=== PATIENT | female | born 1965 | race Caucasian/White ===

== ENCOUNTER 2017-02-22 10:35 | Emergency (ER) | payer BC ==
[2017-02-22 10:50] VITALS: BP 122/68
--- NOTE | 2017-02-22 11:30 | UC ---
Complaint Female HPI - HPI Summary HPI Summary: Urinary frequency began 3 days ago-no pain or burning--fevers chills or back pain - History Of Current Complaint Chief Complaint: UCGU Stated Complaint: URINARY Time Seen by Provider: 02/22/17 11:24 Hx Obtained From: Patient Hx Last Menstrual Period: no ?: No Onset/Duration: Gradual Onset, Lasting Days - 3, Still Present Timing: Constant Severity Initially: Mild Severity Currently: Mild Character: Not Applicable Alleviating Factor(s): Nothing Associated Signs And Symptoms: Positive: Negative - Allergies/Home Medications Allergies/Adverse Reactions: Allergies Allergy/AdvReac Type Severity Reaction Status Date / Time No Known Allergies Allergy Verified 02/22/17 10:50 Home Medications: Home Medications Atorvastatin* [Lipitor 10 MG*] 10 mg PO DAILY 02/22/17 [History Confirmed ] PMH/Surg Hx/FS Hx/Imm Hx Previously Healthy: No Endocrine History: Dyslipidemia GI/ History: Gastroesophageal Reflux - Surgical History Surgical History: Yes Surgery Procedure, Year, and Place: BREAST BIOPSY(BENIGN) CAN'T REMEMBER WHICH SIDE, NOV 2012 - Family History Known Family History: Positive: None - Social History Occupation: Employed Full-time Lives: With Family Alcohol Use: Rare Substance Use Type: None Smoking Status (MU): Heavy Every Day Tobacco Smoker Type: Cigarettes Amount Used/How Often: 3/4 - 1 ppd Length of Time of Smoking/Using Tobacco: 33 yrs Have You Smoked in the Last Year: Yes - Immunization History Most Recent Influenza Vaccination: no Review of Systems Constitutional: Negative Skin: Negative Eyes: Negative ENT: Negative Respiratory: Negative Cardiovascular: Negative Gastrointestinal: Negative Genitourinary: Negative, Frequency Motor: Negative Neurovascular: Negative Musculoskeletal: Negative Neurological: Negative Psychological: Negative Is Patient Immunocompromised?: No All Other Systems Reviewed And Are Negative: Yes Physical Exam Triage Information Reviewed: Yes Appearance: Well-Appearing, No Pain Distress, Well-Nourished Vital Signs: Initial Vital Signs Temp 98.6 F 02/22/17 10:45 Pulse 84 02/22/17 10:45 Resp 14 02/22/17 10:45 BP 122/68 02/22/17 10:45 Pulse Ox 100 02/22/17 10:45 Vital Signs Reviewed: Yes Eye Exam: Normal Eyes: Positive: Conjunctiva Clear ENT Exam: Normal ENT: Positive: Normal ENT inspection, Hearing grossly normal. Negative: Nasal congestion, Nasal drainage, Trismus, Muffled voice, Hoarse voice Dental Exam: Normal Neck exam: Normal Neck: Positive: Supple, Nontender Respiratory Exam: Normal Respiratory: Positive: Chest non-tender, No respiratory distress, No accessory muscle use Cardiovascular Exam: Normal Cardiovascular: Positive: RRR, Pulses Normal, Brisk Capillary Refill Abdominal Exam: Normal Abdomen Description: Positive: Nontender, No Organomegaly, Soft. Negative: CVA Tenderness (R), CVA Tenderness (L) Bowel Sounds: Positive: Present Musculoskeletal Exam: Normal Musculoskeletal: Positive: Strength Intact, ROM Intact, No Edema Neurological Exam: Normal Neurological: Positive: Alert, Muscle Tone Normal Psychological Exam: Normal Skin Exam: Normal Diagnostics - Laboratory Diagnostic Studies Completed/Ordered: UA-trace blood Complaint Female Dx - Course Course Of Treatment: increase fluids, pyridium, follow with pcp - Differential Dx/Diagnosis Provider Diagnoses: dysuria, hematuria Discharge - Discharge Plan Condition: Stable Disposition: HOME Prescriptions: Phenazopyridine TAB* [Pyridium 100 mg TAB*] 100 mg PO TID PRN #15 tab PRN Reason: urinary frequency Patient Education Materials: Hematuria (ED), Dysuria (ED) Referrals: Yadi Vazquez [Physician Web Marketing Assistant] - 1 Week
== END 2017-02-22 11:38 | disposition home or self-care (01) ==
LOC: UCCORT 10:35
DX: R30.0 Dysuria (principal); R31.9 Hematuria, unspecified; F17.210 Nicotine dependence, cigarettes, uncomplicated; K21.9 Gastro-esophageal reflux disease without esophagitis; E78.5 Hyperlipidemia, unspecified
CPT/HCPCS: 81003; 99211; G0463

== ENCOUNTER 2017-03-10 15:25 | Emergency (ER) | payer BC ==
[2017-03-10 17:17] VITALS: BP 138/78
[2017-03-10] MEDS ORDERED: Lidocaine 2% VISCOUS* 15 ML UDC TOPICAL ONE (17:35)
--- NOTE | 2017-03-10 17:45 | UC ---
Skin Complaint HPI - HPI Summary HPI Summary: For about two weeks has had growing, painful spot on upper chest between breasts. Tried hot compresses in the last 1-2 days, it noticing a white spot on top. No drainage, no fevers, no streaking. - History of Current Complaint Chief Complaint: UCSkin Time Seen by Provider: 03/10/17 17:20 Stated Complaint: BOIL Hx Obtained From: Patient Hx Last Menstrual Period: awhile ?: No Onset/Duration: Gradual Onset, Lasting Weeks, Still Present Timing: Constant Onset Severity: Mild Current Severity: Moderate Location: Discrete Character: Redness, Raised, Painful Aggravating Factor(s): Touch Alleviating Factor(s): Nothing Associated Signs & Symptoms: Positive: Tenderness - Allergy/Home Medications Allergies/Adverse Reactions: Allergies Allergy/AdvReac Type Severity Reaction Status Date / Time No Known Allergies Allergy Verified 03/10/17 17:17 Review of Systems Constitutional: Negative Skin: Other - spot Eyes: Negative ENT: Negative Respiratory: Negative Cardiovascular: Negative Gastrointestinal: Negative Genitourinary: Negative Motor: Negative Neurovascular: Negative Musculoskeletal: Negative Neurological: Negative Psychological: Negative Is Patient Immunocompromised?: No All Other Systems Reviewed And Are Negative: Yes PMH/Surg Hx/FS Hx/Imm Hx Endocrine History: Dyslipidemia GI/ History: Gastroesophageal Reflux - Surgical History Surgical History: Yes Surgery Procedure, Year, and Place: BREAST BIOPSY(BENIGN) CAN'T REMEMBER WHICH SIDE, NOV 2012; 2nd bx 2017 on left breast - Family History Known Family History: Positive: None - Social History Lives: With Family Alcohol Use: Rare Substance Use Type: None Smoking Status (MU): Heavy Every Day Tobacco Smoker Type: Cigarettes Amount Used/How Often: 3/4 - 1 ppd Length of Time of Smoking/Using Tobacco: 33 yrs Have You Smoked in the Last Year: Yes - Immunization History Most Recent Influenza Vaccination: no Physical Exam Triage Information Reviewed: Yes Appearance: Well-Appearing, No Pain Distress, Well-Nourished Vital Signs: Initial Vital Signs Temp 98.2 F 03/10/17 17:12 Pulse 75 03/10/17 17:12 Resp 20 03/10/17 17:12 BP 138/78 03/10/17 17:12 Vital Signs Reviewed: Yes Eye Exam: Normal Eyes: Positive: Conjunctiva Clear ENT Exam: Normal ENT: Positive: Normal ENT inspection, Hearing grossly normal, Pharynx normal, TMs normal Dental Exam: Normal Neck exam: Normal Neck: Positive: Supple, Nontender, No Lymphadenopathy Respiratory Exam: Normal Respiratory: Positive: Chest non-tender, Lungs clear, Normal breath sounds, No respiratory distress, No accessory muscle use Cardiovascular Exam: Normal Cardiovascular: Positive: RRR, No Murmur Musculoskeletal Exam: Normal Neurological Exam: Normal Neurological: Positive: Alert Psychological Exam: Normal Skin Exam: Other - very well-defined, domed round 1.25cm lesion on mid sternum with white, keratinous area in the middle, separate from domed area. Very tender to touch. No surrounding erythema, no drainage, no streaking. Course/Dx - Diagnoses Provider Diagnoses: neoplasm of skin of uncertain behavior on chest wall Discharge - Discharge Plan Condition: Stable Disposition: HOME Patient Education Materials: Atypical Mole (ED) Referrals: Mari Ybarra MD [Primary Care Provider] - Satish Vaughn MD [Medical Doctor] - 7 Days Additional Instructions: The recent changes in your skin lesion are concerning. You will need either part or all of it removed for evaluation by a pathologist. I recommend you see a insurance business analyst for this. Try using the topical lidocaine as needed for pain. If it doesn't help, take 400mg ibuprofen about an hour before sleep to help with the bedtime pain.
== END 2017-03-10 18:04 | disposition home or self-care (01) ==
LOC: UCCORT 15:25
DX: D48.5 Neoplasm of uncertain behavior of skin (principal); E78.5 Hyperlipidemia, unspecified; K21.9 Gastro-esophageal reflux disease without esophagitis; F17.210 Nicotine dependence, cigarettes, uncomplicated
CPT/HCPCS: 99212; G0463

== ENCOUNTER 2018-05-27 16:36 | Emergency (ER) | payer BC ==
--- OUTSIDE RECORDS SUMMARY | 2018-05-27 16:58 | XMS REPORT | Continuity of Care Document ---
:1965 External Reference #:[id number] Author Name Sophia Kyle MD Address [address] [place] [address] Care Team Providers Name Role Phone Sophia Kyle MD Care Team Information Cloth Inspector Unavailable Sophia Kyle MD Primary Care Physician Unavailable Payers Date Identification Numbers Payment Provider Subscriber Policy Number: [id number] Roshnius Heydi Corado PayID: [id number] [address] [address] [place] [address] Advance Directives Description No Information Available Problems Date Description Provider Status Onset: 10/15/2012 Benign tumor of breast Rohit Mcgarry MD Active Onset: 06/22/2016 Heartburn Jabier Hartmann MD Active Onset: 09/05/2016 Gastro-esophageal reflux disease with Jabier Hartmann MD Active esophagitis Onset: 09/05/2016 Gastroduodenitis Jabier Hartmann MD Active Onset: 09/05/2016 Benign neoplasm of stomach Jabier Hartmann MD Active Onset: 07/17/2017 Screening for malignant neoplasm of Jabier Hartmann MD Active colon Onset: 02/18/2018 Hyperlipidemia Sophia Kyle MD Active Onset: 02/18/2018 Gastro-esophageal reflux disease with Sophia Kyle MD Active esophagitis Onset: 02/18/2018 Migraine without aura, not refractory Sophia Kyle MD Active Onset: 02/18/2018 Trigeminal neuralgia Sophia Kyle MD Active Family History Date Family Member(s) Observation Comments General Non Contributory Father Diabetes Father due to Diabetes () Father Thyroid Disease Mother Seasonal Allergies Social History Type Date Description Comments Sex Unknown Marital Status Lives With Home Environment Lives With Spouse Diet Patient follows no dietary restrictions Occupation Currently Working Space [employer] Operations [employer] Work Status Currently Working Tobacco Use Start: Unknown current cigarette smoker ETOH Use Rarely consumes alcohol Tobacco Use Start: Unknown Patient is a current smoker, smokes every day Recreational Drug Use Denies Drug Use Tobacco Use Start: Unknown Light tobacco smoker (10 or fewer cigarettes/day) Smoking Status Reviewed: 05/13/18 Light tobacco smoker (10 or fewer cigarettes/day) Allergies, Adverse Reactions, Alerts Description No Known Drug Allergies Medications Medication Date Status Form Strength Qnty SIG Indications Ordering Provider Benzonatate 05/14/19 Active Capsules 200mg 30cap take one R05 Anabella, 19 s capsule MD Sophia every 8 hours as needed Mucus Relief 05/14/19 Active Tablets ER 600mg 60tab Take one R05 Anabella , ER 19 12HR s every 12 MD Sophia hours if needed Singulair Active Tablets 10mg 1 po qd Unknown 00 prn Atorvastatin Active Tablets 10mg 1 po daily Cunningha Calcium 00 mMari MD Famotidine Active Tablets 20mg 1 by mouth Unknown 00 every day Dulcolax 07/18/[address] 5mg 4tabs 4 tablets Z12.11 Jabier 18 - taken kalen Hartmann MD 02/19/20 8pm the 18 day before the procedure Suprep Bowel 07/18/19 Hx Solution 17.5-3.13 1kit 1/2 Z12.11 Jabier Prep Kit 18 - -1.6GM/18 afternoon MD Shahbaz 02/19/20 0ML before and 18 1/2 in the morning of procedure. Meclizine HCL Hx Tablets 25mg 90tab 1 po tid Unknown 00 - s Unknown Imitrex Hx Tablets 100mg Unknown 00 - Unknown Omeprazole Hx Capsules DR 20mg 90cap 1 po qd Unknown 00 - s 02/19/20 18 Triamcinolone Hx Cream 0.025% Unknown Acetonide 00 - Unknown Auralgan Hx Solution 5.5-1.4% Unknown 00 - Unknown Fluticasone Hx Suspension 50mcg/Act 1 puff bid Unknown Propionate 00 - Unknown Relpax Hx Tablets 20mg one by Unknown 00 - mouth at Unknown first sign of migraine - may take 2nd after 2 hours if migraine still present. Immunizations CPT Code Status Date Vaccine Lot # [id number] Given 06/01/2016 Pneumovax Injection 31137 Given 06/01/2016 Tdap injection [id number] Given 01/01/2013 flu vaccination Vital Signs Date Vital Result Comment 05/13/2018 8:27am BP Systolic Sitting Left Arm 108 mmHg BP Diastolic Sitting Left Arm 78 mmHg Body Temperature 97.5 F Heart Rate 83 /min Respiratory Rate 16 /min Height 65 inches 5'5" Weight 167.00 lb with boots BMI (Body Mass Index) 27.8 kg/m2 BSA (Body Surface Area) 1.83 m2 [place] body weight in kilograms 57 kg O2 % BldC Oximetry 97 % Ra 02/18/2018 8:40am BP Systolic Sitting Right Arm 123 mmHg BP Diastolic Sitting Right Arm 85 mmHg Body Temperature 98.0 F Heart Rate 83 /min Respiratory Rate 16 /min Height 65 inches 5'5" Weight 168.00 lb BMI (Body Mass Index) 28.0 kg/m2 BSA (Body Surface Area) 1.84 m2 [place] body weight in kilograms 57 kg O2 % BldC Oximetry 96 % 07/17/2017 4:04pm BP Systolic Sitting Right Arm 116 mmHg BP Diastolic Sitting Right Arm 78 mmHg Heart Rate 89 /min Respiratory Rate 18 /min Height 65 inches 5'5" Weight 167.00 lb BMI (Body Mass Index) 27.8 kg/m2 BSA (Body Surface Area) 1.83 m2 [place] body weight in kilograms 57 kg 09/05/2016 8:24am BP Systolic Sitting Left Arm 120 mmHg BP Diastolic Sitting Left Arm 82 mmHg Heart Rate 90 /min Respiratory Rate 16 /min Height 65 inches 5'5" Weight 165.00 lb BMI (Body Mass Index) 27.5 kg/m2 BSA (Body Surface Area) 1.82 m2 [place] body weight in kilograms 57 kg 06/22/2016 9:29am BP Systolic Sitting Left Arm 124 mmHg BP Diastolic Sitting Left Arm 90 mmHg Heart Rate 86 /min Respiratory Rate 16 /min Height 65 inches 5'5" Weight 165.00 lb BMI (Body Mass Index) 27.5 kg/m2 BSA (Body Surface Area) 1.82 m2 [place] body weight in kilograms 57 kg 10/15/2012 11:52am BP Systolic Sitting Left Arm 116 mmHg BP Diastolic Sitting Left Arm 72 mmHg Heart Rate 75 /min Height 66 inches 5'6" Weight 169.00 lb BMI (Body Mass Index) 27.3 kg/m2 BSA (Body Surface Area) 1.86 m2 Results Test Date Facility Test Result H/L Range Note Comprehensive Metabolic 05/13/2018 [facility] Glucose 89 mg/dL N 74-106 1 Panel [address] [place], [place] [id number] [phone] BUN 15 mg/dL N 7-18 Creatinine 0.7 mg/dL N 0.6-1.3 Glom Filtration Rate, Estimate >60 mL/min >60 If >60 mL/min >60 2 BUN/Creat 21.4 ratio Sodium 142 mmol/L N 136-145 Potassium 5.1 mmol/L N 3.5-5.1 Chloride 108 mmol/L High 98-107 Carbon Dioxide 30 mmol/L N 21-32 Anion Gap 4 mEq/L Low 8-16 Calcium 9.4 mg/dL N 8.5-10.1 Total Protein 7.0 g/dL N 6.4-8.2 Albumin 3.8 g/dL N 3.4-5.0 Globulin 3.2 g/dL N 1.9-4.3 Alb/Glob 1.2 ratio Bilirubin,Total 0.4 mg/dL N 0.2-1.0 Sgot/Ast 11 U/L Low 15-37 3 SGPT/Alt 26 U/L N 12-78 Alkaline Phosphatase 115 U/L N 45-117 LDL Cholesterol 05/13/2018 [facility] Cholesterol 272 mg/dL High <200 4 Profile [address] [place], [place] [id number] [phone] Triglycerides 373 mg/dL High <150 5 HDL Cholesterol 42 mg/dL >40 6 LDL-Cholesterol 155 mg/dL < 100 7 Laboratory test 05/13/2018 [facility] Vitamin 25.5 Low 30.0-100.0 8 finding [address] [facility] D,25-Hydroxy ng/[place] [address] [phone] Glycohemoglobin 05/13/2018 [facility] Glycohemoglobin 5.6 % N 4.2-6.[address] (A1c) [place], [place] [id number] [phone] eAG 114 mg/dL CBC W/Automated Diff 05/13/2018 [facility] White Blood 7.1 K/uL N 3.1-10.[address] [place] [address] [phone] Red Blood Count 4.51 M/uL N 3.90-5.40 Hemoglobin 14.5 gm/dL N 11.6-15.8 Hematocrit 43.2 % N 36.0-46.1 Mean Cell Volume 95.8 fl N 80.9-99.0 Mean Corpuscular HGB 32.2 pg N 25.9-32.7 Mean Corpuscular HGB Conc 33.6 g/dL N 30.8-34.3 Platelet Count 189 K/uL N 155-360 Red Cell Distri Width SD 48.0 fl High 36-47 Red Cell Distri Width %CV 14.0 % N 11.7-14.4 Mean Platelet Volume 11.6 fL N 8.9-12.4 Neut% 43.6 % N 40.4-72.8 Lymph % 46.4 % High 20.0-42.0 [place] % 7.3 % N 4.3-13.2 Eo% 2.4 % N 0.0-6.6 Bas% 0.3 % N 0.0-1.1 Neut# 3.10 K/uL N 1.8-7.0 Lymph # 3.30 K/uL N 1.0-4.0 [place] # 0.52 K/uL N 0.3-0.9 Eos # 0.17 K/uL N 0.0-0.5 Baso # 0.02 K/uL N 0.0-0.1 Laboratory test 05/13/2018 [facility] Thyroid Stim 2.11 uIU/mL N 0.30-4.[address] [place] [address] [phone] Free T4 1.01 ng/dL N 0.76-1.46 Magnesium 2.4 mg/dL N 1.8-2.4 Iron-Tibc-%Sat 05/13/2018 [facility] Serum Iron 133 g/dL N 50-[address] [place] [address] [phone] Total Iron Binding Capacity 347 g/dL N 250-450 Transferrin %Saturation 38 % N 12-57 Laboratory test finding 05/13/2018 [facility] Ferritin 145 ng/mL N 8-252 [address] [place], [place] [id number] [phone] Vitamin B12 731 pg/mL N 193-986 Serum or plasma 04/21/2018 N2N/CCD Import Serum or plasma 10 Low 15-37 aspartate aspartate aminotransferase aminotransferase measure measurement (enzymatic activity/volume) Serum or plasma 04/21/2018 N2N/CCD Import Serum or plasma 6 Low 8-16 anion gap anion gap Serum or plasma 04/21/2018 N2N/CCD Import Serum or plasma 121 High 45- 117 alkaline alkaline phosphatase phosphatase measurement ( measurement (enzymatic activity/volume) Serum or plasma 04/21/2018 N2N/CCD Import Serum or plasma 1.0 albumin/globulin albumin/globulin mass ratio mass ratio Serum or plasma 04/21/2018 N2N/CCD Import Serum or plasma 3.7 3.4-5.0 albumin measurement albumin measurement (mass/volume) (mass/volume) Serum or plasma 04/21/2018 N2N/CCD Import Serum or plasma 21 12-78 alanine alanine aminotransferase aminotransferase measureme measurement (enzymatic activity/volume) Serum globulin 04/21/2018 N2N/CCD Import Serum globulin 3.6 1.9-4.3 measurement by measurement by calculation calculation (mass/vo (mass/volume) Hct VFr Bld Auto 04/21/2018 N2N/CCD Import Hct VFr Bld Auto 43.1 36.0- 46. 1 Co2 SerPl-sCnc 04/21/2018 N2N/CCD Import Co2 SerPl-sCnc 24 21-32 Serum or plasma 04/21/2018 N2N/CCD Import Serum or plasma 9.7 8.5-10.1 calcium measurement calcium measurement (mass/volume) (mass/volume) Serum or plasma 04/21/2018 N2N/CCD Import Serum or plasma 106 98-107 chloride chloride measurement measurement Serum or plasma 04/21/2018 N2N/CCD Import Serum or plasma 0.8 0.6-1.3 creatinine creatinine measurement measurement (mass/volum (mass/volume) Serum or plasma 04/21/2018 N2N/CCD Import Serum or plasma 96 74-106 glucose measurement glucose measurement (mass/volume) (mass/volume) Serum or plasma 04/21/2018 N2N/CCD Import Serum or plasma 4.3 3.5-5.1 potassium potassium measurement measurement Serum or plasma 04/21/2018 N2N/CCD Import Serum or plasma 7.3 6.4-8.2 protein measurement protein measurement (mass/volume) (mass/volume) Serum or plasma 04/21/2018 N2N/CCD Import Serum or plasma 0.2 0.2-1.0 total bilirubin total bilirubin measurement (mass/ measurement (mass/volume) Serum or plasma 04/21/2018 N2N/CCD Import Serum or plasma 17 7-18 urea nitrogen urea nitrogen measurement measurement (mass/vo (mass/volume) Serum or plasma 04/21/2018 N2N/CCD Import Serum or plasma 21.2 urea urea nitrogen/creatinine nitrogen/creatinine mass rati mass ratio Sodium SerPl-sCnc 04/21/2018 N2N/CCD Import Sodium SerPl-sCnc 136 136- 145 Laboratory test 04/21/2018 [facility] Troponin-I < 0.015 10, finding [address] ng/mL [address] [place], [place] [id number] [phone] Absolute neutrophil 04/21/2018 N2N/CCD Import Absolute neutrophil 3.49 1.8-7.0 count count Automated basophil 04/21/2018 N2N/CCD Import Automated basophil 0.3 0.0- 1.1 % % Automated blood 04/21/2018 N2N/CCD Import Automated blood 0.02 0.0-0.1 basophil count basophil count (number/volume) (number/volume) Automated blood 04/21/2018 N2N/CCD Import Automated blood 0.15 0.0-0.5 eosinophil count eosinophil count Automated blood 04/21/2018 N2N/CCD Import Automated blood 8.0 3.1-10.7 leukocyte count leukocyte count (number/volume) (number/volume) Automated blood 04/21/2018 N2N/CCD Import Automated blood 3.70 1.0-4.0 lymphocyte count lymphocyte count (number/volume) (number/volume) Automated blood 04/21/2018 N2N/CCD Import Automated blood 46.3 High 20.0- 42. lymphocytes/100 lymphocytes/100 0 leukocytes leukocytes Automated blood 04/21/2018 N2N/CCD Import Automated blood 43.6 40.4-72. neutrophils/100 neutrophils/100 8 leukocytes leukocytes Automated blood 04/21/2018 N2N/CCD Import Automated blood 191 155-360 platelet count platelet count Automated blood 04/21/2018 N2N/CCD Import Automated blood 11.1 8.9-12.4 platelet mean platelet mean volume measurement volume measurement Automated 04/21/2018 N2N/CCD Import Automated 1.9 0.0-6.6 eosinophil % eosinophil % Automated 04/21/2018 N2N/CCD Import Automated 46.2 36-47 erythrocyte erythrocyte distribution width distribution width Automated 04/21/2018 N2N/CCD Import Automated 13.8 11.7-14. erythrocyte erythrocyte 4 distribution width distribution width ratio ratio Automated 04/21/2018 N2N/CCD Import Automated 32.5 25.9-32. erythrocyte mean erythrocyte mean 7 corpuscular corpuscular hemoglobin hemoglobin (mass per erythrocyte) Automated 04/21/2018 N2N/CCD Import Automated 34.6 High 30.8-34. erythrocyte mean erythrocyte mean 3 corpuscular corpuscular hemoglobin hemoglobin concentration measurement (mass/volume) Automated 04/21/2018 N2N/CCD Import Automated 93.9 80.9-99. erythrocyte mean erythrocyte mean 0 corpuscular volume corpuscular volume (MCV (MCV) measurement Automated monocyte 04/21/2018 N2N/CCD Import Automated monocyte 7.9 4.3- 13.2 % % Blood erythrocytes 04/21/2018 N2N/CCD Import Blood erythrocytes 4.59 3.90-5.4 automated count automated count 0 (number/volume) (number/volume) Blood hemoglobin 04/21/2018 N2N/CCD Import Blood hemoglobin 14.9 11.6- 15. measurement measurement 8 (mass/volume) (mass/volume) Blood monocytes 04/21/2018 N2N/CCD Import Blood monocytes 0.63 0.3-0.9 automated count automated count (number/volume) (number/volume) Urine Dipstick 02/18/2018 [facility] Ua Color yellow Yellow Ua Clarity clear Clear Ua Leuko - Negative Ua Nitrite - Negative Ua Urobilinogen - Low 0.2 - 1.0 E.U./dL Ua Protein - Negative Ua PH 7 6.5-7.5 Ua Blood - Negative Ua Specific [place] 1.010 1.010-1.030 Ua Ketones - Negative Ua Bilirubin - Negative Ua Glucose - Negative CBC With Auto Diff 07/29/2015 N2N/CCD Import Abs Basophils 0.1 K/uL 0.0- 0.3 Abs Eosinophils 0.2 K/uL 0.0-0.5 Abs Lymphocytes 3.1 K/uL 0.8-5.5 Abs Monocytes 0.5 K/uL 0.1-1.0 Abs Neutrophils 4.3 K/uL 2.1-8.0 Basophil 0.6 % 0.0-4.0 Eosinophil 2.0 % 0.0-5.0 Hematocrit 42.6 % 36.0-47.0 Hemoglobin 14.6 gm/dL 12.0-16.0 Lymphocyte 38.6 % 16.0-52.0 MCH 32.2 pg High 27.0-32.0 MCHC 34.2 g/dL 32.0-36.0 MCV 94.2 fL 80.0-97.0 Monocyte 6.4 % 2.0-10.0 Neutrophil 52.4 % 35.0-75.0 PLT Count 214 K/ul 140-400 RBC 4.52 M/uL 4.00-5.40 RDW 13.8 % 11.5-14.5 WBC 8.1 K/uL 4.1-11.0 Laboratory test finding 07/29/2015 N2N/CCD Import A/G Ratio 1.4 Ratio 1.0-2.2 Екатерина Egfr >60 >60 Albumin 4.0 g/dL 3.6-4.9 Alkaline Phosphatase 114 U/L 24-140 Alt 10 U/L 3-42 Anion Gap 10 mmol/L 6-14 Ast 10 U/L 8-42 BUN 13 mg/dL 6-26 Calcium 9.8 mg/dL 8.5-10.2 Carbon Dioxide 30 mmol/L 24-34 Chloride 101 mmol/L 97-109 Creatinine 0.8 mg/dL 0.5-1.4 Globulin 2.9 g/dL 2.0-3.5 Glucose 77 mg/dL 70-105 Non Екатерина Egfr >60 >60 Potassium 5.1 mmol/L 3.5-5.2 12 Sodium 136 mmol/L 134-142 13 Total Bilirubin 0.4 mg/dL 0.1-1.3 Total Protein 6.9 g/dL 6.0-8.0 Laboratory test 06/01/2015 N2N/CCD Import Pap Smear Thin Prep ok 14 finding Laboratory test 11/18/2012 [facility] Breast Biopsy - See Note 15 finding [address] [place] [address] [phone] 1 E78.5 G43.009 E55.9 Z86.32 R53.82 G25.81 2 Note: Persistent reduction for 3 months or more in an eGFR <60 mL/min/1.73 m2 defines CKD. Patients with eGFR values >/=60 mL/min/1.73 m2 may also have CKD if evidence of persistent proteinuria is present. The original MDRD equation for estimated GFR is not valid for patients less than 18 years of age. Additional information may be found at www.kdoqi.org. 3 Values below the stated reference ranges of AST and ALT can be seen in normal populations. Clinical correlation is suggested. 4 Reference Guidelines*: Desirable: ........... < 200 mg/dL Borderline High: ..... 200-239 mg/dL High: ................ >=240 mg/dL * The National Cholesterol Education Program (NCEP) 5 Reference Guidelines*: Normal: ............. < 150 mg/dL Borderline High: .... 150-199 mg/dL High: ............... 200-499 mg/dL Very High: .......... > 500 mg/dL * Source: National Cholesterol Education Program (NCEP) 6 Reference Guidelines*: Low HDL: ..... < 40 mg/dL Normal: ..... 40-60 mg/dL Desirable: ... > 60 mg/dL *The National Cholesterol Education Program(NCEP) 7 Reference Guidelines*: Optimal:........... <100 mg/dL Near Optimal....... 100-129 mg/dL Borderline High.... 130-159 mg/dL High............... 160-189 mg/dL Very High.......... >=190 mg/dL * Source: National Cholesterol Education Program (NCEP) 8 Vitamin D deficiency has been defined by the [place] of Medicine and an Endocrine Society practice guideline as a level of serum 25-OH vitamin D less than 20 ng/mL (1,2). The Endocrine Society went on to further define vitamin D insufficiency as a level between 21 and 29 ng/mL (2). 1. IOM ([place] of Medicine). 2010. Dietary reference intakes for calcium and D. [place]: The National Academies Press. 2. James MF, Sasha TRAN, Marilu POTTS, et al. Evaluation, treatment, and prevention of vitamin D deficiency: an Endocrine Society clinical practice guideline. JCEM. 2010; 96(9):1911-30. Performed at: RN - [facility] [address] [id number] Linotypist: Jessica Rodgers MD, Phone: [phone] 9 Elevated levels of HbA1c suggest the need for more aggressive treatment of glycemia. The [place] Diabetes Association recommends that a primary goal of therapy should be a HbA1c of <7% and that physicians should re-evaluate the treatment regimen in patients with HbA1c values consistently >8%. 10 CHEST PAIN AND LEFT ARM PAIN 11 0.0 - 0.045 ng/mL: Normal 0.046 - 0.5 ng/mL: Suggestive 0.6 - 1.5 ng/mL: Consistent 12 Concerning GFR Guidelines: Normal function or mild renal disease, if clinically at risk: >/=60 mL/min Moderately decreased: 30-59 Severely decreased: 15-29 Renal failure: <15 Glomerular Filtration Rate (GFR) is estimated based on the MDRD equation, which assumes a steady state for creatinine as recommended by the National Kidney Disease Education Program in conjunction with the National Institutes of Health and the National Kidney Foundation. Clinical conditions in which it may be necessary to measure GFR by using clearance methods include extremes of age and body size, severe malnutrition or obesity, diseases of skeletal muscle, paraplegia or quadriplegia, vegetarian diet, rapidly changing kidney function, and calculation of the dose of potentially toxic drugs that are excreted by the kidneys. 13 Concerning GFR Guidelines for Americans: Normal function or mild renal disease, if clinically at risk: >/=60 mL/min Moderately decreased: 30-59 Severely decreased: 15-29 Renal failure: <15 14 [facility] [address] [place] [id number] GYNECOLOGIC CYTOLOGY REPORT Accession Number: [id number] Source of Specimen(s): A: Thin Prep Cervical / Endocervical Pap Smear - One Vial Clinical Diagnosis and History: Date of Last Menstrual Period: 03/26 Other Clinical Conditions: Last Pap Smear: 2011 normal REFLEX TO HPV ASSAY IF RESULTS OF THIS PAP ARE ASCUS Specimen Adequacy Satisfactory for evaluation Presence of endocervical/transformation zone component General Categorization Negative for intraepithelial lesion or malignancy Interpretation NEGATIVE FOR INTRAEPITHELIAL LESION OR MALIGNANCY Reported: 06/03/2015 Electronically Signed Out By Billie KRAMER(ASCP) [facility] dol Unless otherwise specified, testing performed by [facility] [address] [address] 15 OPERATION/PROCEDURE Left breast needle directed excisional biopsy. DIAGNOSIS: "LEFT BREAST, EXCISION": INTRADUCTAL PAPILLOMA, IN A BACKGROUND OF FIBROCYSTIC CHANGE CONSISTING OF STROMAL FIBROSIS, DUCTAL DILATION, APOCRINE METAPLASIA AND MILD DUCTAL HYPERPLASIA WITHOUT ATYPIA. JW/clf GROSS The specimen is received on a radiographic tray additionally labeled, "LEFT BREAST EXCISION". This contains an oriented excision of fibrous breast measuring 3.4 x 2.7 x 1.4 cm. in overall dimensions. There are orienting sutures, which designate three sides, which are subsequently leading to painting of all six sides such that superior-blue, anterior-red, inferior-green, posterior-black, medial-orange, lateral-yellow. The external surface has a pliable appearance. The cut surface of this excision demonstrates white, soft fibrous tissue with only focal nodularity measuring 0.3 cm. in the center portion. This area is submitted in cassette A. There is a blue doomed 3.0 cm. cyst, which is submitted in cassette E. Balance of tissue without focal findings other than the needle guided wire, which accounts for focal hemorrhage. Entirely submitted within six lettered cassettes. WS/clf MICROSCOPIC Sections show epithelial fronds supported by a fibrovascular stroma. Epithelial cells line the luminal aspect of the papillae and myoepithelial cell layers are invariably present between the epithelial cells and the basement membrane. Metaplastic apocrine cells are readily identifiable. Solid and fenestrated epithelial hyperplasia as well as stratification of the epithelial cells without cytologic atypia is present focally and diffusely. No invasive disease is present. Background breast tissue is characterized by stromal fibrosis, ductal dilation, cyst formation lined by apocrine cells with hobnail shape and deep eosinophilic cytoplasm. PRE OPERATIVE DIAGNOSIS Left breast papilloma REVIEW CODE CODE: I WILLIS Villeda MD 11/19/12 1649 Procedures Date Code Description Status 05/13/2018 96083 Remove Impact Cerumen Irrigati Completed 11/07/2017 76968 Colonoscopy With Polypectomy Completed 11/07/2017 61109 Colonoscopy With Biopsy Completed 11/07/2017 [id number] Colonoscopy Completed 05/28/2017 [id number] Mammogram Completed 2016 27449 EGD With Biopsy Completed 11/18/2012 41602 Excison cyst,fibroadenoma or other benign/malignant Completed tumor (breast 11/18/2012 55284 Anesthesia, Integumentary, Chest Anterior, Unspec Completed 11/11/2012 52786 EKG Interpretation And Report Only Completed 10/10/2012 [id number] Mammogram Completed 10/02/2012 [id number] Mammogram Completed 09/30/2012 [id number] Mammogram Completed Encounters Type Date Location Provider Dx Diagnosis Office Visit 05/13/2018 Primary [facility] [place], R07.9 Chest pain, 8:30a Office [facility] Dana, unspecified GIFT OFFICER-C, CNM E78.5 Hyperlipidemia, unspecified K21.0 Gastro-esophageal reflux disease with esophagitis G43.009 Migraine w/o aura, not intractable, w/o status migrainosus G25.81 Restless legs syndrome R60.0 Localized edema R05 Cough H61.21 Impacted cerumen, right ear F17.210 Nicotine dependence, cigarettes, uncomplicated Z12.31 Encntr screen mammogram for malignant neoplasm of breast Office Visit 07/17/2017 4:00p RIVER Hartmann MD Z12.11 Encounter for screening for malignant neoplasm of colon R12 Heartburn Office Visit 09/05/2016 8:15a RIVER Hartmann MD R12 Heartburn K21.0 Gastro-esophageal reflux disease with esophagitis K29.70 Gastritis, unspecified, without bleeding K31.7 Polyp of stomach and duodenum Office Visit 06/22/2016 9:00a RIVER Hartmann MD R12 Heartburn Office Visit 10/15/2012 11:30a Surgical Office [place], 217 Benign Neoplasm MD Rohit Breast Plan of Treatment Future Appointment(s):07/11/2018 1:00 pm - Dana Sibley MS, GIFT OFFICER-C, CNM at Primary Care Lkbeqi4505/13/2018 - Dana Sibley MS, GIFT OFFICER-C, CNMR07.9 Chest pain, unspecifiedComments:--GlwfcwuzC80.5 Hyperlipidemia, unspecifiedComments:-- Taking Atorvastatin Calcium 10 mg 1 po daily. Patient forgets to take it every day --She states she will get labs nwnwaU78.0 Gastro-esophageal reflux disease with esophagitisComments:-- -continue Pepcid, increase to twice a day as she still has evening symptoms. If symptoms persist to C/B and will do a course of PPI. Will order further testing if twqwsuE02.009 Migraine without aura , not intractable, without status migraComments:-- Stopped with perimenopausal symptoms, 4 years agoG25.81 Restless legs syndromeComments:-- Patient using compression stockings during the day with effect --Magnesium oil to legs at night.R60.0 Localized edemaComments:--Better now, worse in the summer-Decreased salt. Increase water with wedge of lemon --Wear support hoseR05 CoughNew Medication:Benzonatate 200 mg - take one capsule every 8 hours as neededMucus Relief ER 600 mg - Take one every 12 hours if neededComments:--Increase fluid intake to make mucous easier to expectorate----May use Guaifenesin (Mucinex) to thin mucous and make it easier to clear from the head, throat, and lungs -- Expectorate sputum--May use cough drops--Rest--May use Vicks' vaporub on chest, under nose for cough --Stop smoking --May use benzonatate to suppress cough at night-- To use netti potH61.21 Impacted cerumen, right earComments:--Ear was flushed by wxbbhoA29.210 Nicotine dependence, cigarettes, uncomplicatedComments: ---I highly encourage you to consider smoking cessation. Smoking is linked to a variety of health conditions such as hypertension, lung disease, as well as inflammatory disease. It is also linked to multiple cancers, not just lung cancer - it is also implicated in breast, colon and skin cancer. --Not interested in smoking yet- smokes 1 PPDZ12.31 Encounter for screening mammogram for malignant neoplasm ofNew Xrays:Mammography, Screening Bilateral Mammogram, Ordered: 05/13/18AllFollow up:Patient to get name of derm and to sign to get records Mammogram RTO for PATCHER exam and lab review within the next weeks
[2018-05-27 17:04] VITALS: BP 124/68
--- NOTE | 2018-05-27 17:12 | UC ---
UC General HPI - HPI Summary HPI Summary: L sided sore throat and a tender swollen gland in L side of neck x 1 day. - History of Current Complaint Chief Complaint: UCGeneralIllness Stated Complaint: SORE THROAT Time Seen by Provider: 05/27/18 17:04 Hx Obtained From: Patient Hx Last Menstrual Period: awhile Timing: Constant Pain Intensity: 9 Aggravating: swallowing Associated Signs & Symptoms: Negative: Fever - Allergy/Home Medications Allergies/Adverse Reactions: Allergies Allergy/AdvReac Type Severity Reaction Status Date / Time No Known Allergies Allergy Verified 05/27/18 17:05 PMH/Surg Hx/FS Hx/Imm Hx Endocrine History: Dyslipidemia - Surgical History Surgical History: Yes Surgery Procedure, Year, and Place: BREAST BIOPSY(BENIGN) CAN'T REMEMBER WHICH SIDE, NOV 2012; 2016 on left breast - Family History Known Family History: Positive: None - Social History Occupation: Employed Full-time Alcohol Use: Rare Substance Use Type: None Smoking Status (MU): Heavy Every Day Tobacco Smoker Type: Cigarettes Amount Used/How Often: 3/4 - 1 ppd Length of Time of Smoking/Using Tobacco: 33 yrs Have You Smoked in the Last Year: Yes - Immunization History Most Recent Influenza Vaccination: no Review of Systems All Other Systems Reviewed And Are Negative: Yes ENT: Positive: Sore Throat Respiratory: Positive: Cough Physical Exam Triage Information Reviewed: Yes Appearance: Well-Appearing Vital Signs: Initial Vital Signs Temp 98.3 F 05/27/18 17:02 Pulse 82 05/27/18 17:02 Resp 17 05/27/18 17:02 BP 124/68 05/27/18 17:02 Pulse Ox 100 05/27/18 17:02 Vital Signs Reviewed: Yes Eyes: Positive: Conjunctiva Clear ENT: Positive: Pharyngeal erythema - mild, TMs normal, Other - no trouble with speech or swallow. Negative: Nasal congestion, Nasal drainage Neck: Positive: Supple, Tenderness @ - L anterior cervical node which is slightly enlarged. Respiratory: Positive: Lungs clear, Normal breath sounds, No respiratory distress Cardiovascular: Positive: RRR, No Murmur Abdomen Description: Positive: Nontender, No Organomegaly, Soft Bowel Sounds: Positive: Present Musculoskeletal: Positive: ROM Intact Neurological: Positive: Alert Psychological: Positive: Age Appropriate Behavior Skin: Negative: Rashes Course/Dx - Course Course Of Treatment: rapid strep = negative - Differential Dx - Multi-Symptom Differential Diagnoses: Other - RAPID STREP WAS NEGATIVE. LIKELY VIRAL ILLNESS; HOWVEVER, THE PAIN AND SINGLE ADENOPATHY IS ASYMMETRIC PLUS PT HAS LONG HX SMOKING THUS PT BEING GIVEN AN ENT F/U IF NOT BETTER IN 5 DAYS OR SOONER IF WORSE TO EXCLUDE PATHOLOGY SUCH CA. HER FAMILY IS ESTABLISHED WITH DR JACKSON THUS SHE REQUEST HIM. - Diagnoses Provider Diagnosis: Sore throat, Adenopathy Discharge - Sign-Out/Discharge Documenting (check all that apply): Patient Departure All imaging exams completed and their final reports reviewed: No - Discharge Plan Condition: Stable Disposition: HOME Patient Education Materials: Pharyngitis (ED), Lymphadenopathy (ED) Referrals: Vasiliy Jackson MD [Medical Doctor] - Additional Instructions: YOU MUST FOLLOW UP TO ENSURE THE SORE THROAT AND SWOLLEN LYMPH NODE RESOLVES. FOLLOW UP WITH DR JACKSON IF NOT BETTER IN 5 DAYS OR SOONER IF WORSE. - Billing Disposition and Condition Condition: STABLE Disposition: Home - Attestation Statements Provider Attestation: Per institutional requirements, I have reviewed the chart, however, I was not consulted specifically or made aware of this patient by the midlevel provider. I did not personally evaluate, interact with , or disposition this patient.
== END 2018-05-27 17:50 | disposition home or self-care (01) ==
LOC: UCCORT 16:36
DX: J02.9 Acute pharyngitis, unspecified (principal); R59.0 Localized enlarged lymph nodes; F17.210 Nicotine dependence, cigarettes, uncomplicated
CPT/HCPCS: 87651; 99211; G0463

== ENCOUNTER 2018-08-12 10:20 | Emergency (ER) | payer BC ==
--- OUTSIDE RECORDS SUMMARY | 2018-08-12 10:31 | XMS REPORT | Continuity of Care Document ---
:1965 External Reference #:[id number] Author Name Sophia Kyle MD Address [address] [place] [address] Care Team Providers Name Role Phone Sophia Kyle MD Care Team Information Relay Shop Tester Unavailable Sophia Kyle MD Primary Care Physician Unavailable Payers Date Identification Numbers Payment Provider Subscriber Policy Number: [id number] Aye Corado PayID: [id number] [address] [address] [place] [address] Problems Active Problems Provider Date Benign tumor of breast Rohit Mcgarry MD Onset: 10/15/2012 Heartburn Jabier Hartmann MD Onset: 06/22/2016 Gastro-esophageal reflux disease with Jabier Hartmann MD Onset: 09/05/2016 esophagitis Gastroduodenitis Jabier Hartmann MD Onset: 09/05/2016 Benign neoplasm of stomach Jabier Hartmann MD Onset: 09/05/2016 Screening for malignant neoplasm of colon Jabier Hartmann MD Onset: 07/17/2017 Hyperlipidemia Sophia Kyle MD Onset: 02/18/2018 Gastro-esophageal reflux disease with Sophia Kyle MD Onset: 02/18/2018 esophagitis Migraine without aura, not refractory Sophia Kyle MD Onset: 02/18/2018 Trigeminal neuralgia Sophia Kyle MD Onset: 02/18/2018 Family History Date Family Member(s) Observation Comments General Non Contributory Father Diabetes Father due to Diabetes () Father Thyroid Disease Mother Seasonal Allergies Social History Type Date Description Comments Sex Unknown Marital Status Lives With Home Environment Lives With Spouse Diet Patient follows no dietary restrictions 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[employer] Work Status Currently Working Tobacco Use Start: Unknown current cigarette smoker ETOH Use Rarely consumes alcohol Tobacco Use Start: Unknown Patient is a current smoker, smokes every day Recreational Drug Use Denies Drug Use Tobacco Use Start: Unknown Light tobacco smoker (10 or fewer cigarettes/day) Smoking Status Reviewed: 07/29/18 Light tobacco smoker (10 or fewer cigarettes/day) Allergies, Adverse Reactions, Alerts Description No Known Drug Allergies Medications Active Medications SIG Qnty Indications Ordering Date Provider Cephalexin 1 by mouth three 30tabs L03.032 Hilda Kylea, 07/16/2018 500mg Tablets times a day Ergocalciferol take one a week 16caps E55.9 Anabella Sophia, 07/16/2018 [id number] MD Capsules [id number] Ethyl Take 2 in am 60caps E78.5 Hilda Kylea, 07/16/2018 Esters MD 1gm Capsules Nystop apply under 60gm B37.9 Anabella Sophia, 07/16/2018 [id number]/GM Powder breasts twice a MD day Vitamin D take one capsule 12caps Hilda Kylea, 05/27/2018 (Ergocalciferol) once a week [id number] Capsules Singulair 1 by mouth every 30tabs Hilda Kylea, 10mg Tablets day as needed Atorvastatin Calcium 1 by mouth daily 30tabs Hilda Kylea, 10mg MD Tablets Famotidine 1 by mouth every 30tabs Hilda Kylea, 20mg Tablets day MD History Medications Mucus Relief ER Take one every 12 60tabs R05 Hilda Kylea, 05/13/2018 - 600mg hours if needed 07/16/2018 Tablets ER 12HR Benzonatate take one capsule 30caps R05 Sophia Kyle, 05/13/2018 - 200mg every 8 hours as 07/16/2018 Capsules needed Dulcolax 4 tablets taken a 4tabs Z12.11 Jabier Hartmann MD 07/17/2017 - 5mg Tablets DR 8pm the day 02/18/2018 before the procedure Suprep Bowel Prep Kit / afternoon 1kit Z12.11 Jabier Hartmann MD 07/17/2017 - before and 1/2 in 02/18/2018 17.5-3.13-1.6GM/180ML the morning of Solution procedure. Meclizine HCL 1 po tid 90tabs Unknown - 25mg Unknown Tablets Imitrex Unknown - 100mg Tablets Unknown Omeprazole 1 po qd 90caps Unknown - 20mg 02/18/[address] Triamcinolone Unknown - Acetonide Unknown 0.025% Cream Auralgan Unknown - 5.5-1.4% Unknown Solution Fluticasone 1 puff bid Unknown - Propionate Unknown 50mcg/Act Suspension Relpax one by mouth at Unknown - 20mg Tablets first sign of Unknown migraine - may take 2nd after 2 hours if migraine still present. Immunizations CPT Code Status Date Vaccine Lot # [id number] Given 06/01/2016 Pneumovax Injection 01368 Given 06/01/2016 Tdap injection [id number] Given 01/01/2013 flu vaccination Vital Signs Date Vital Result Comment 07/29/2018 1:08pm BP Systolic Sitting Right Arm 114 mmHg BP Diastolic Sitting Right Arm 80 mmHg Body Temperature 9.2 F Heart Rate 84 /min Respiratory Rate 18 /min Height 65 inches 5'5" Weight 168.00 lb BMI (Body Mass Index) 28.0 kg/m2 BSA (Body Surface Area) 1.84 m2 [place] body weight in kilograms 57 kg O2 % BldC Oximetry 98 % Ra 07/16/2018 1:28pm BP Systolic Sitting Right Arm 110 mmHg BP Diastolic Sitting Right Arm 80 mmHg Body Temperature 98.1 F Heart Rate 84 /min Respiratory Rate 16 /min Height 65 inches 5'5" Weight 169.00 lb BMI (Body Mass Index) 28.1 kg/m2 BSA (Body Surface Area) 1.84 m2 [place] body weight in kilograms 57 kg O2 % BldC Oximetry 97 % ra 05/13/2018 8:27am BP Systolic Sitting Left Arm 108 mmHg BP Diastolic Sitting Left Arm 78 mmHg Body Temperature 97.5 F Heart Rate 83 /min Respiratory Rate 16 /min Height 65 inches 5'5" Weight 167.00 lb with boots BMI (Body Mass Index) 27.8 kg/m2 BSA (Body Surface Area) 1.83 m2 [place] body weight in kilograms 57 kg O2 % BldC Oximetry 97 % Ra 02/18/2018 8:40am BP Systolic Sitting Right Arm 123 mmHg BP Diastolic Sitting Right Arm 85 mmHg Body Temperature 98.0 F Heart Rate 83 /min Respiratory Rate 16 /min Height 65 inches 5'5" Weight 168.00 lb BMI (Body Mass Index) 28.0 kg/m2 BSA (Body Surface Area) 1.84 m2 [place] body weight in kilograms 57 kg O2 % BldC Oximetry 96 % 07/17/2017 4:04pm BP Systolic Sitting Right Arm 116 mmHg BP Diastolic Sitting Right Arm 78 mmHg Heart Rate 89 /min Respiratory Rate 18 /min Height 65 inches 5'5" Weight 167.00 lb BMI (Body Mass Index) 27.8 kg/m2 BSA (Body Surface Area) 1.83 m2 [place] body weight in kilograms 57 kg 09/05/2016 8:24am BP Systolic Sitting Left Arm 120 mmHg BP Diastolic Sitting Left Arm 82 mmHg Heart Rate 90 /min Respiratory Rate 16 /min Height 65 inches 5'5" Weight 165.00 lb BMI (Body Mass Index) 27.5 kg/m2 BSA (Body Surface Area) 1.82 m2 [place] body weight in kilograms 57 kg 06/22/2016 9:29am BP Systolic Sitting Left Arm 124 mmHg BP Diastolic Sitting Left Arm 90 mmHg Heart Rate 86 /min Respiratory Rate 16 /min Height 65 inches 5'5" Weight 165.00 lb BMI (Body Mass Index) 27.5 kg/m2 BSA (Body Surface Area) 1.82 m2 [place] body weight in kilograms 57 kg 10/15/2012 11:52am BP Systolic Sitting Left Arm 116 mmHg BP Diastolic Sitting Left Arm 72 mmHg Heart Rate 75 /min Height 66 inches 5'6" Weight 169.00 lb BMI (Body Mass Index) 27.3 kg/m2 BSA (Body Surface Area) 1.86 m2 Results Test Date Facility Test Result H/L Range Note HPV High [facility] - [facility] High Results on Alt Ref Lab [address] [place] [address] [phone] Urine Dipstick 07/16/2018 [facility] Ua Color yellow Yellow Ua Clarity clear Clear Ua Leuko negative Negative Ua Nitrite negative Negative Ua Urobilinogen negative Low 0.2 - 1.0 E.U./dL Ua Protein negative Negative Ua PH 5.0 Low 6.5-7.5 Ua Blood negative Negative Ua Specific [place] 1.025 1.010-1.030 Ua Ketones negative Negative Ua Bilirubin negative Negative Ua Glucose negative Negative Comprehensive Metabolic 05/13/2018 [facility] Glucose 89 mg/dL N 74-106 3 Panel [address] [place] [address] [phone] BUN 15 mg/dL N 7-18 Creatinine 0.7 mg/dL N 0.6-1.3 Glom Filtration Rate, Estimate >60 mL/min >60 If >60 mL/min >60 4 BUN/Creat 21.4 ratio Sodium 142 mmol/L N [...] N 0.2-1.0 Sgot/Ast 11 U/L Low 15-37 5 SGPT/Alt 26 U/L N 12-78 Alkaline Phosphatase 115 U/L N 45-117 LDL Cholesterol 05/13/2018 [facility] Cholesterol 272 mg/dL High <200 6 Profile [address] [place] [address] [phone] Triglycerides 373 mg/dL High <150 7 HDL Cholesterol 42 mg/dL >40 8 LDL-Cholesterol 155 mg/dL < 100 9 Laboratory test 05/13/2018 [facility] Vitamin 25.5 Low 30.0-100.0 10 finding [address] D,25-Hydroxy ng/[place] [address] [phone] Glycohemoglobin 05/13/2018 [facility] Glycohemoglobin 5.6 % N 4.2-6.[address] (A1c) [place] [address] [phone] eAG 114 mg/dL CBC W/Automated Diff 05/13/2018 [facility] White Blood 7.1 K/uL N 3.1-10.[address] [place] [address] [phone] Red Blood Count 4.51 M/uL N 3.90-5.40 [...] 40.4-72.8 Lymph % 46.4 % High 20.0-42.0 Sharkey % 7.3 % N 4.3-13.2 Eo% 2.4 % N 0.0-6.6 Bas% 0.3 % N 0.0-1.1 Neut# 3.10 K/uL N 1.8-7.0 Lymph # 3.30 K/uL N 1.0-4.0 Sharkey # 0.52 K/uL N 0.3-0.9 Eos # 0.17 K/uL N 0.0-0.5 Baso # 0.02 K/uL N 0.0-0.1 Laboratory test finding 05/13/2018 [facility] Ferritin 145 ng/mL N 8-252 [address] [place] [address] [phone] Vitamin B12 731 pg/mL N 193-986 Iron-Tibc-%Sat 05/13/2018 [facility] Serum Iron 133 g/dL N 50-170 [address] [place] [address] [phone] Total Iron Binding Capacity 347 g/dL N 250-450 Transferrin %Saturation 38 % N 12-57 Laboratory test 05/13/2018 [facility] Thyroid Stim 2.11 uIU/mL N 0.30-4.[address] [place] [place] [address] [phone] Free T4 1.01 ng/dL N 0.76-1.46 Magnesium 2.4 mg/dL N 1.8-2.4 Serum globulin 04/21/2018 [facility] Import Serum globulin 3.6 1.9-4.3 measurement by measurement by calculation calculation (mass/vo (mass/volume) Serum or plasma 04/21/2018 [facility] Import Serum or plasma 21 12-78 alanine alanine aminotransferase aminotransferase measureme measurement (enzymatic activity/volume) Serum or plasma 04/21/2018 [...] N2N/[facility] Import Sodium SerPl-sCnc 136 136- 145 Automated blood 04/21/2018 [facility] Import Automated blood 0.15 0.0-0.5 eosinophil count eosinophil count Automated blood 04/21/2018 [facility] Import Automated blood 8.0 3.1-10.7 leukocyte count leukocyte count (number/volume) (number/volume) Automated blood 04/21/2018 N2N/[facility] Import Automated blood 0.02 0.0-0.1 basophil count basophil count (number/volume) (number/volume) Automated basophil 04/21/2018 N2N/[facility] Import Automated basophil 0.3 0.0- 1.1 % % Absolute neutrophil 04/21/2018 N[facility]N/[facility] Import Absolute neutrophil 3.49 1.8-7.0 count count Laboratory test 04/21/2018 [facility] Troponin-I < 0.015 12, finding [address] ng/mL 13 [place] [address] [phone] Automated blood 04/21/2018 N2N/[facility] Import Automated blood 3.70 1.0-4.0 lymphocyte count lymphocyte count (number/volume) (number/volume) Automated blood 04/21/2018 N[facility]N/[facility] Import Automated blood 46.3 High 20.0- 42.0 lymphocytes/100 lymphocytes/100 leukocytes leukocytes Automated blood 04/21/2018 N2N/[facility] Import Automated blood 43.6 40.4- 72.8 neutrophils/100 neutrophils/100 leukocytes leukocytes Automated blood 04/21/2018 N2N/[facility] Import Automated blood 191 155-360 platelet count platelet count Automated blood 04/21/2018 N[facility]N/[facility] Import Automated blood 11.1 8.9-12.4 platelet mean platelet mean volume measurement volume measurement Automated 04/21/2018 N[facility]N/[facility] Import Automated 1.9 0.0-6.6 eosinophil % eosinophil % Automated 04/21/2018 N2N/[facility] Import Automated 46.2 36-47 erythrocyte erythrocyte distribution width distribution width Automated 04/21/2018 N[facility]N/[facility] Import Automated 13.8 11.7-14.4 erythrocyte erythrocyte distribution width distribution width ratio ratio Automated 04/21/2018 [facility] Import Automated 32.5 25.9-32.7 erythrocyte mean erythrocyte mean corpuscular corpuscular hemoglobin hemoglobin (mass per erythrocyte) Automated 04/21/2018 [facility]N/[facility] Import Automated 34.6 High 30.8-34.3 erythrocyte mean erythrocyte mean corpuscular corpuscular hemoglobin hemoglobin concentration measurement (mass/volume) Automated 04/21/2018 N2N/[facility] Import Automated 93.9 80.9-99.0 erythrocyte mean erythrocyte mean corpuscular volume corpuscular volume (MCV (MCV) measurement Automated monocyte 04/21/2018 N2N/[facility] Import Automated monocyte 7.9 4.3- 13.2 % % Blood erythrocytes 04/21/2018 N2N/[facility] Import Blood erythrocytes 4.59 3.90-5.40 automated count automated count (number/volume) (number/volume) Blood hemoglobin 04/21/2018 N2N/[facility] Import Blood hemoglobin 14.9 11.6- 15.8 measurement measurement (mass/volume) (mass/volume) Blood monocytes 04/21/2018 N2N/[facility] Import Blood monocytes 0.63 0.3-0.9 automated count automated count (number/volume) (number/volume) Co2 SerPl-sCnc 04/21/2018 N2N/[facility] Import Co2 SerPl-sCnc 24 21-32 Hct VFr Bld Auto 04/21/2018 N2N/[facility]D Import Hct VFr Bld Auto 43.1 36.0- 46.1 Urine Dipstick 02/18/2018 [facility] Ua Color yellow Yellow Ua Clarity clear Clear Ua Leuko - Negative Ua Nitrite - Negative Ua Urobilinogen - Low 0.2 - 1.0 E.U./dL Ua Protein - Negative Ua PH 7 6.5-7.5 Ua Blood - Negative Ua Specific [place] 1.010 1.010-1.030 Ua Ketones - Negative Ua [...] 8.1 K/uL 4.1-11.0 Laboratory test finding 07/29/2015 [facility] Import A/G Ratio 1.4 Ratio 1.0-2.2 Екатерина [...] Egfr >60 >60 Potassium 5.1 mmol/L 3.5-5.2 14 Sodium 136 mmol/L 134-142 15 Total Bilirubin 0.4 mg/dL 0.1-1.3 Total Protein 6.9 g/dL 6.0-8.0 Laboratory test 06/01/2015 [facility] Import Pap Smear Thin Prep ok 16 finding Laboratory test 11/18/2012 [facility] Breast Biopsy - See Note [address] Permanent Only [place] [id number] [phone] 1 Z12.4 2 Hard copy of report to be sent by mail Report may be viewed in Clinical Review, or in PCI under Medical Record Forms 3 E78.5 G43.009 E55.9 Z86.32 R53.82 G25.81 4 Note: Persistent reduction for 3 months or more in an eGFR <60 mL/min/1.73 m2 defines CKD. Patients with eGFR values >/=60 mL/min/1.73 m2 may also have CKD if evidence of persistent proteinuria is present. The original MDRD equation for estimated GFR is not valid for patients less than 18 years of age. Additional information may be found at www.kdoqi.org. 5 Values below the stated reference ranges of AST and ALT can be seen in normal populations. Clinical correlation is suggested. 6 Reference Guidelines*: Desirable: ........... < 200 mg/dL Borderline High: ..... 200-239 mg/dL High: ................ >=240 mg/dL * The National Cholesterol Education Program (NCEP) 7 Reference Guidelines*: Normal: ............. < 150 mg/dL Borderline High: .... 150-199 mg/dL High: ............... 200-499 mg/dL Very High: .......... > 500 mg/dL * Source: National Cholesterol Education Program (NCEP) 8 Reference Guidelines*: Low HDL: ..... < 40 mg/dL Normal: ..... 40-60 mg/dL Desirable: ... > 60 mg/dL *The National Cholesterol Education Program(NCEP) 9 Reference Guidelines*: Optimal:........... <100 mg/dL Near Optimal....... 100-129 mg/dL Borderline High.... 130-159 mg/dL High............... 160-189 mg/dL Very High.......... >=190 mg/dL * Source: National Cholesterol Education Program (NCEP) 10 Vitamin D deficiency has been defined by the [place] of Medicine and an Endocrine Society practice guideline as a level of serum 25-OH vitamin D less than 20 ng/mL (1,2). The Endocrine Society went on to further define vitamin D insufficiency as a level between 21 and 29 ng/mL (2). 1. IOM ([place] of Medicine). 2010. Dietary reference intakes for calcium and D. [place]: The National Academies Press. 2. James MF, Sasha TRAN, Marilu POTTS, et al. Evaluation, treatment, and prevention of vitamin D deficiency: an Endocrine Society clinical practice guideline. JCEM. 2010; 96(7):1911-30. Performed at: RN - [facility] [address] [id number] Dean Of Graduate Studies: Jessica Rodgers MD, Phone: [phone] 11 Elevated levels of HbA1c suggest the need for more aggressive treatment of glycemia. The [place] Diabetes Association recommends that a primary goal of therapy should be a HbA1c of <7% and that physicians should re-evaluate the treatment regimen in patients with HbA1c values consistently >8%. 12 CHEST PAIN AND LEFT ARM PAIN 13 0.0 - 0.045 ng/mL: Normal 0.046 - 0.5 ng/mL: Suggestive 0.6 - 1.5 ng/mL: Consistent 14 Concerning GFR Guidelines: Normal function or mild [...] drugs that are excreted by the kidneys. 15 Concerning GFR Guidelines for Americans: Normal function or mild renal disease, if clinically at risk: >/=60 mL/min Moderately decreased: 30-59 Severely decreased: 15-29 Renal failure: <15 16 [facility]. [address] [place] [id number] GYNECOLOGIC CYTOLOGY REPORT Accession Number: [id number] Source of Specimen(s): A: Thin Prep Cervical [...] 06/03/2015 Electronically Signed Out By Billie KRAMER(ASCP) [facility] dol Unless otherwise specified, testing performed by [address] [address] 17 OPERATION/PROCEDURE Left breast needle directed excisional biopsy. [...] 11/19/12 1649 Procedures Date Code Description Status 06/10/2018 [id number] Mammogram Completed 05/13/2018 54698 Remove Impact Cerumen Irrigati Completed 11/07/2017 78542 Colonoscopy With Polypectomy Completed 11/07/2017 72324 Colonoscopy With Biopsy Completed 11/07/2017 [id number] Colonoscopy Completed 06/07/2017 [id number] Mammogram Completed 2016 52035 EGD With Biopsy Completed 11/18/2012 74111 Excison cyst,fibroadenoma or other benign/malignant Completed tumor (breast 11/18/2012 02800 Anesthesia, Integumentary, Chest Anterior, Unspec Completed 11/11/2012 33090 EKG Interpretation And Report Only Completed 10/10/2012 [id number] Mammogram Completed 10/02/2012 [id number] Mammogram Completed 09/30/2012 [id number] Mammogram Completed Encounters Type Date Location Provider Dx Diagnosis Office Visit 07/29/2018 Primary [facility] Sally Sibley.032 Cellulitis of left 1:00p Office Dana, [place], toe GLUE MAKER-C, CNM Office Visit 07/16/2018 Primary Care Henrryesme, Z01.419 Encntr for tax specialist 1:30p Office Dana, MS, exam (general) GLUE MAKER-C, CNM (routine) w/o abn findings R92.2 Inconclusive mammogram E78.5 Hyperlipidemia, unspecified F17.210 Nicotine dependence, cigarettes, uncomplicated G25.81 Restless legs syndrome E55.9 Vitamin D deficiency, unspecified L03.032 Cellulitis of left toe R23.9 Unspecified skin changes B37.9 Candidiasis, unspecified Office Visit 05/13/2018 8:30a [facility] Care HenrryesmeDana, R07.9 Chest pain, Office MS, GLUE MAKER-C, CNM unspecified E78.5 Hyperlipidemia, unspecified K21.0 Gastro-esophageal reflux disease [...] MD Rohit Breast Plan of Treatment Future Appointment(s):10/17/2018 2:00 pm - Dana Sibley MS, GLUE MAKER-C, CNM at [facility]8507/29/2018 - Dana Sibley, MS, AYAKA, CNML03.032 Cellulitis of left toeComments:--Finish Cephalexin 500 mg 1 by mouth three times a dayAllFollow up:--Return to office 10/17/18. Please get fasting labs, 10/10 , prior to office visit.
--- OUTSIDE RECORDS SUMMARY | 2018-08-12 10:32 | XMS REPORT | Continuity of Care Document ---
:1965 External Reference #:[id number] Author Name Sophia Kyle MD Address [address] [place] [address] Care Team Providers Name Role Phone Sophia Kyle MD Care Team Information Health Insurance Adjuster Unavailable Sophia Kyle MD Primary Care Physician Unavailable Payers Date Identification Numbers Payment Provider Subscriber Policy Number: [id number] Roshnius Heydi Corado PayID: [id number] [address] [address] [place] [address] Advance Directives Description No Information Available Problems Active Problems Provider Date Benign tumor [...] follows no dietary restrictions Occupation Currently Working [employer] Work Status Currently Working Tobacco Use Start: Unknown current cigarette smoker ETOH Use Rarely consumes alcohol Tobacco Use Start: Unknown Patient is a current smoker, smokes every day Recreational Drug Use Denies Drug Use Tobacco Use Start: Unknown Light tobacco smoker (10 or fewer cigarettes/day) Smoking Status Reviewed: 07/16/18 Light tobacco smoker (10 or fewer cigarettes/day) Allergies, Adverse Reactions, Alerts Description No Known Drug Allergies Medications Active Medications SIG Qnty Indications Ordering Date Provider Cephalexin 1 by mouth three 30tabs L03.032 Anabella Sophia, 07/16/2018 500mg Tablets times a day Ergocalciferol take one a week 16caps E55.9 Anabella, Sophia, 07/16/2018 [id number] MD Capsules Gkspd-9-Gdek Ethyl Take 2 in am 60caps E78.5 Anabella Sophia, 07/16/2018 Esters 1gm Capsules Nystop apply under 60gm B37.9 Anabella Sophia, 07/16/2018 473730Mfat/GM Powder breasts twice a MD day Vitamin D take one capsule 12caps Hilda Kylea, 05/27/2018 (Ergocalciferol) once a week [id number] Capsules Singulair 1 by mouth every 30tabs Anabella Sophia, 10mg Tablets day as needed Atorvastatin Calcium 1 by mouth daily 30tabs Anabella Sophia, 10mg MD Tablets Famotidine 1 by mouth every 30tabs Anabella Sophia, 20mg Tablets day MD History Medications Mucus Relief ER Take one every 12 60tabs R05 Anabella Sophia, 05/13/2018 - 600mg hours if needed 07/16/2018 Tablets ER 12HR Benzonatate take one capsule 30caps R05 Anabella Sophia, 05/13/2018 - 200mg every 8 hours as 07/16/2018 Capsules needed Dulcolax 4 tablets taken a 4tabs Z12.11 Jabier Hartmann MD 07/17/2017 - 5mg Tablets DR 8pm the day 02/18/2018 before the procedure Suprep Bowel Prep Kit / afternoon 1kit Z12.11 Jabier Hartmann MD 07/17/2017 - before and /2 in 02/18/2018 17.5-3.13-1.6GM/180ML the morning of Solution [...] CPT Code Status Date Vaccine Lot # [id number] Given 06/01/2016 Pneumovax Injection 73711 Given 06/01/2016 Tdap injection 08213 Given 01/01/2013 flu vaccination Vital Signs Date Vital Result Comment 07/16/2018 1:28pm BP Systolic Sitting Right Arm 110 mmHg BP Diastolic Sitting Right Arm 80 mmHg Body Temperature 98.1 F Heart Rate 84 /min Respiratory Rate 16 /min Height 65 inches 5'5" Weight 169.00 lb BMI (Body Mass Index) 28.1 kg/m2 BSA (Body Surface Area) 1.84 m2 Toone body weight in kilograms 57 kg O2 % BldC Oximetry 97 % ra 05/13/2018 8:27am BP Systolic Sitting Left Arm 108 mmHg BP Diastolic Sitting Left Arm 78 mmHg Body Temperature 97.5 F Heart Rate 83 /min Respiratory Rate 16 /min Height 65 inches 5'5" Weight 167.00 lb with boots BMI (Body Mass Index) 27.8 kg/m2 BSA (Body Surface Area) 1.83 m2 Toone body weight in kilograms 57 kg O2 % BldC Oximetry 97 % Ra 02/18/2018 8:40am BP Systolic Sitting Right Arm 123 mmHg BP Diastolic Sitting Right Arm 85 mmHg Body Temperature 98.0 F Heart Rate 83 /min Respiratory Rate 16 /min Height 65 inches 5'5" Weight 168.00 lb BMI (Body Mass Index) 28.0 kg/m2 BSA (Body Surface Area) 1.84 m2 Toone body weight in kilograms 57 kg O2 % BldC Oximetry 96 % 07/17/2017 4:04pm BP Systolic Sitting Right Arm 116 mmHg BP Diastolic Sitting Right Arm 78 mmHg Heart Rate 89 /min Respiratory Rate 18 /min Height 65 inches 5'5" Weight 167.00 lb BMI (Body Mass Index) 27.8 kg/m2 BSA (Body Surface Area) 1.83 m2 Toone body weight in kilograms 57 kg 09/05/2016 8:24am BP Systolic Sitting Left Arm 120 mmHg BP Diastolic Sitting Left Arm 82 mmHg Heart Rate 90 /min Respiratory Rate 16 /min Height 65 inches 5'5" Weight 165.00 lb BMI (Body Mass Index) 27.5 kg/m2 BSA (Body Surface Area) 1.82 m2 Toone body weight in kilograms 57 kg 06/22/2016 9:29am BP Systolic Sitting Left Arm 124 mmHg BP Diastolic Sitting Left Arm 90 mmHg Heart Rate 86 /min Respiratory Rate 16 /min Height 65 inches 5'5" Weight 165.00 lb BMI (Body Mass Index) 27.5 kg/m2 BSA (Body Surface Area) 1.82 m2 Toone body weight in kilograms 57 kg 10/15/2012 11:52am BP Systolic Sitting Left Arm 116 mmHg BP Diastolic Sitting Left Arm 72 mmHg Heart Rate 75 /min Height 66 inches 5'6" Weight 169.00 lb BMI (Body Mass Index) 27.3 kg/m2 BSA (Body Surface Area) 1.86 m2 Results Test Date Facility Test Result H/L Range Note Urine Dipstick 07/16/2018 [facility] Ua Color yellow Yellow Ua Clarity clear Clear Ua Leuko negative Negative Ua Nitrite negative Negative Ua Urobilinogen negative Low 0.2 - 1.0 E.U./dL Ua Protein negative Negative Ua PH 5.0 Low 6.5-7.5 Ua Blood negative Negative Ua Specific [place] 1.025 1.010-1.030 Ua Ketones negative Negative Ua Bilirubin negative Negative Ua Glucose negative Negative Iron-Tibc-%Sat 05/13/2018 [facility] Serum Iron 133 g/dL N 50-170 1 [address] [place] [address] [phone] Total Iron Binding Capacity 347 g/dL N 250-450 Transferrin %Saturation 38 % N 12-57 Laboratory test finding 05/13/2018 [facility] Ferritin 145 ng/mL N 8-[address] [place] [address] [phone] Vitamin B12 731 pg/mL N 193-986 Laboratory test 05/13/2018 [facility] Thyroid Stim 2.11 uIU/mL N 0.30-4.[address] [place] [address] [phone] Free T4 1.01 ng/dL N 0.76-1.46 Magnesium 2.4 mg/dL N 1.8-2.4 CBC W/Automated Diff 05/13/2018 [facility] White Blood 7.1 K/uL N 3.1-10.[address] [place] [address] [phone] Red Blood Count 4.51 M/uL N 3.90-5.40 [...] 40.4-72.8 Lymph % 46.4 % High 20.0-42.0 [place] % 7.3 % N 4.3-13.2 Eo% 2.4 % N 0.0-6.6 Bas% 0.3 % N 0.0-1.1 Neut# 3.10 K/uL N 1.8-7.0 Lymph # 3.30 K/uL N 1.0-4.0 [place] # 0.52 K/uL N 0.3-0.9 Eos # 0.17 K/uL N 0.0-0.5 Baso # 0.02 K/uL N 0.0-0.1 Glycohemoglobin A1c 05/13/2018 [facility] Glycohemoglobin 5.6 % N 4.2-6.[address] (A1c) [place] [address] [phone] eAG 114 mg/dL Laboratory test 05/13/2018 [facility] Vitamin 25.5 Low 30.0-100.0 [address] D,25-Hydroxy ng/mL [place], [place] [id number] [phone] LDL Cholesterol 05/13/2018 [facility] Cholesterol 272 High <200 [address] mg/dL [place], [place] [id number] [phone] Triglycerides 373 mg/dL High <150 5 HDL Cholesterol 42 mg/dL >40 6 LDL-Cholesterol 155 mg/dL < 100 7 Comprehensive Metabolic 05/13/2018 [facility] Glucose 89 mg/dL N 74-[address] [place] [address] [phone] BUN 15 mg/dL N 7-18 Creatinine 0.7 mg/dL N 0.6-1.3 Glom Filtration Rate, Estimate >60 mL/min >60 If >60 mL/min >60 8 BUN/Creat 21.4 ratio Sodium 142 mmol/L N [...] N 0.2-1.0 Sgot/Ast 11 U/L Low 15-37 9 SGPT/Alt 26 U/L N 12-78 Alkaline Phosphatase 115 U/L N 45-117 Serum globulin 04/21/2018 N2N/CCD Import Serum globulin [...] 3.49 1.8-7.0 count count Laboratory test 04/21/2018 [facility] Troponin-I < 0.015 10, finding [address] ng/mL 11 [place] [address] [phone] Automated blood 04/21/2018 N2N/CCD Import Automated blood [...] 6.5-7.5 Ua Blood - Negative Ua Specific [place] 1.010 1.010-1.030 Ua Ketones - Negative Ua [...] Prep ok 14 finding Laboratory test 11/18/2012 [facility] Breast Biopsy - See Note [address] [place] [address] [phone] 1 E78.5 G43.009 E55.9 Z86.32 R53.82 G25.81 2 Elevated levels of HbA1c suggest the need for more aggressive treatment of glycemia. The [place] Diabetes Association recommends that a primary goal of therapy should be a HbA1c of <7% and that physicians should re-evaluate the treatment regimen in patients with HbA1c values consistently >8%. 3 Vitamin D deficiency has been defined by the [place] of [employer] and an Endocrine Society practice guideline as a level of serum 25-OH vitamin D less than 20 ng/mL (1,2). The Endocrine Society went on to further define vitamin D insufficiency as a level between 21 and 29 ng/mL (2). 1. IOM ([place] of Medicine). 2010. Dietary reference intakes for calcium and D. [place]: The National Academies Press. 2. James MF, Sasha NC, Marilu POTTS, et al. Evaluation, treatment, and prevention of vitamin D deficiency: an Endocrine Society clinical practice guideline. JCEM. 2010; 96(6):1911-30. Performed at: RN - [facility] [address] [id number] Hydrographical Technical Officer: Jessica Rodgers MD, Phone: [phone] 4 Reference Guidelines*: Desirable: ........... < 200 [...] Source: National Cholesterol Education Program (NCEP) 8 Note: Persistent reduction for 3 months or more in an eGFR <60 mL/min/1.73 m2 defines CKD. Patients with eGFR values >/=60 mL/min/1.73 m2 may also have CKD if evidence of persistent proteinuria is present. The original MDRD equation for estimated GFR is not valid for patients less than 18 years of age. Additional information may be found at www.kdoqi.org. 9 Values below the stated reference ranges of AST and ALT can be seen in normal populations. Clinical correlation is suggested. 10 CHEST PAIN AND LEFT ARM PAIN [...] decreased: 15-29 Renal failure: <15 14 LABORATORY [facility], [facility]. [address] [place] [address] GYNECOLOGIC CYTOLOGY REPORT Accession Number: [id number] Source of Specimen(s): A: Thin Prep Cervical [...] 06/03/2015 Electronically Signed Out By Billie KRAMER([facility]) [facility] dol Unless otherwise specified, testing performed by [facility] [address] [place] [id number] 15 OPERATION/PROCEDURE Left breast needle directed excisional [...] Left breast papilloma REVIEW CODE CODE: I Signed WILLIS HOWARD MD 11/19/12 1649 Procedures Date Code Description Status 06/10/2018 91798539 Mammogram Completed 05/13/2018 04754 Remove Impact Cerumen Irrigati Completed 11/07/2017 75103 Colonoscopy With Polypectomy Completed 11/07/2017 17196 Colonoscopy With Biopsy Completed 11/07/2017 [id number] Colonoscopy Completed 06/07/2017 [id number] Mammogram Completed 2016 15008 EGD With Biopsy Completed 11/18/2012 90236 Excison cyst,fibroadenoma or other benign/malignant Completed tumor (breast 11/18/2012 09677 Anesthesia, Integumentary, Chest Anterior, Unspec Completed 11/11/2012 58657 EKG Interpretation And Report Only Completed 10/10/2012 [id number] Mammogram Completed 10/02/2012 [id number] Mammogram Completed 09/30/2012 [id number] Mammogram Completed Encounters Type Date Location Provider Dx Diagnosis Office Visit 07/16/2018 [facility] [place], Z01.419 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 [place] Dana, exam (general) EMERGENCY MANAGEMENT PROGRAM SPECIALIST-C, CNM (routine) w/o abn findings R92.2 Inconclusive mammogram E78.5 Hyperlipidemia, unspecified F17.210 Nicotine dependence, cigarettes, uncomplicated G25.81 Restless legs syndrome E55.9 Vitamin D deficiency, unspecified L03.032 Cellulitis of left toe R23.9 Unspecified skin changes B37.9 Candidiasis, unspecified Office Visit 05/13/2018 8:30a [facility] Dana Sibley, R07.9 Chest pain, Office MS, EMERGENCY MANAGEMENT PROGRAM SPECIALIST-C, CNM unspecified E78.5 Hyperlipidemia, unspecified K21.0 Gastro-esophageal [...] MD Rohit Breast Plan of Treatment Future Appointment(s):07/29/2018 1:00 pm - Dana Sibley MS, TOPHER-Mele, CNM at [facility] Ccemqw6310/17/2018 2:00 pm - Dana Sibley MS, AYAKA, JORGE at [facility] Vchkrz9707/16/2018 - Dana Sibley, , AYAKA, CNMZ01.419 Encounter for gynecological examination (general) (routine)Comments:--Continue healthy lifestyle --Continue weight bearing exercise, diet rich in calcium, and vitamin D3 gel capsules, as ordered.R92.2 Inconclusive mammogramNew Xrays: Bilateral breast ultrasound, Ordered: 07/16/18Comments:--Discussed mammogram: breasts are extremely dense, Patient to get bilateral breast pflpwixzR51.5 Hyperlipidemia, unspecifiedNew Medication:Iellg-0-Cvrq Ethyl Esters 1 gm - Take 2 in amNew Labs:LDL Cholesterol Profile, Scheduled: 10/10/18CBC W/Automated Diff , Scheduled: 10/10/18Comprehensive Metabolic Panel, Scheduled: 10/10/18Comments: Total Cholesterol: 272Triglycerides: 373High Density Lipids: 42Low Density Lipids: 155--Follow a heart healthy diet that emphasizes fruits, vegetables, whole grains, poultry, fish, and nuts. --AmericanHeart Association recommends limiting saturated fats to 5-6 % of your daily calories and minimizing the amount of saturated fats and trans fatty acids that you eat. Saturated fats are typically solids at room temperature. Trans fatty acids are found in fried foods , baked goods.--A diet high in fiber can help lower cholesterol. --Decrease sugary food and beverages--Increase physical activity to 30 minutes on most days , as tolerated--Quit smoking. Non smokers should avoid second hand smoke. -- Lose weight -- Patient advised to start taking Atorvastatin Calcium 10 mg 1 po daily --To add Lovaza --If triglycerides still elevated in 3 months, will add fenofibrate 160 mg po QdayF17.210 Nicotine dependence, cigarettes, uncomplicatedComments:---I highly encourage you to consider smoking cessation. Smoking is linked to a variety of health conditions such as hypertension, lung disease, as well as inflammatory disease. It is also linked to multiple cancers , not just lung cancer - it is also implicated in breast, colon and skin cancer. --> 3 minutes were spent counseling Patient on smoking [id number] Restless legs syndromeComments:-- Patient using compression stockings during the day with effect --Magnesium oil to legs at night.--Labs WNLE55.9 Vitamin D deficiency, unspecifiedNew Medication:Ergocalciferol 69851 Unit - take one a weekNew Labs:Vitamin D,25-Hydroxy, Scheduled: 10/10/18Comments :-- Vitamin D level: 25.5--Take high dose vitamin D, as ordered. When complete, take Vitamin D3 gel capsules 2000 IU QDAYL03.032 Cellulitis of left toeNew Medication:Cephalexin 500 mg - 1 by mouth three times a dayComments:--Soak TID warm water, Epsom salts--Report any worsening --RTO in 10 daysR23.9 Unspecified skin changesComments:--Make dermatology OVB37.9 Candidiasis, unspecifiedNew Medication:Nystop 954372 Unit/GM - apply under breasts twice a dayComments:-- Keep area clean and dryAllFollow up:--to get bilat breast sonogram --RTO in 10 days f/u cellulitis --Return to office in 3 months. Please get fasting labs 1 week prior to office visit. -- Patient to make F/U derm OV
[2018-08-12 10:47] VITALS: BP 121/73
--- NOTE | 2018-08-12 10:56 | UC ---
Complaint Female HPI - HPI Summary HPI Summary: dysuria x 2 days urinary urgency / frequency no fever, no chills, no back / flank pain , no abdominal pain - History Of Current Complaint Chief Complaint: UCGU Stated Complaint: URINARY Time Seen by Provider: 08/12/18 10:34 Hx Obtained From: Patient Hx Last Menstrual Period: awhile ?: No Onset/Duration: Gradual Onset, Lasting Days - 2, Still Present Timing: Constant Severity Initially: Moderate Severity Currently: Moderate Pain Intensity: 0 Character: Burning Aggravating Factor(s): Urination Alleviating Factor(s): Nothing Associated Signs And Symptoms: Negative: Fever, Back Pain, Vaginal Bleeding/ Discharge, Vaginal Discharge, Nausea, Vomiting(# Of Episodes =), Genital Swelling, Genital Blisters, Retained Foregin Body (Specify) - Allergies/Home Medications Allergies/Adverse Reactions: Allergies Allergy/AdvReac Type Severity Reaction Status Date / Time No Known Allergies Allergy Verified 08/12/18 10:42 PMH/Surg Hx/FS Hx/Imm Hx - Additional Past Medical History Additional PMH: Dyslipidemia, GERD, Vitamin D Deficiency - Surgical History Surgical History: Yes Surgery Procedure, Year, and Place: Benign Breast Biopsies, 2016 2012 - Family History Known Family History: Positive: None Negative: Diabetes - Social History Alcohol Use: Rare Substance Use Type: None Smoking Status (MU): Heavy Every Day Tobacco Smoker Type: Cigarettes Amount Used/How Often: 3/4 - 1 ppd Length of Time of Smoking/Using Tobacco: Since Age 20 Have You Smoked in the Last Year: Yes - Immunization History Most Recent Influenza Vaccination: no Review of Systems All Other Systems Reviewed And Are Negative: Yes Constitutional: Positive: Negative Skin: Positive: Negative Eyes: Positive: Negative ENT: Positive: Negative Respiratory: Positive: Negative Cardiovascular: Positive: Negative Gastrointestinal: Positive: Negative Genitourinary: Positive: Negative, Dysuria, Frequency, Urgency Is Patient Immunocompromised?: No Physical Exam Triage Information Reviewed: Yes Appearance: Well-Appearing, No Pain Distress, Well-Nourished Vital Signs: Initial Vital Signs Temp 98.3 F 08/12/18 10:35 Pulse 92 08/12/18 10:35 Resp 18 08/12/18 10:35 BP 121/73 08/12/18 10:35 Pulse Ox 98 08/12/18 10:35 Vital Signs Reviewed: Yes Eye Exam: Normal Eyes: Positive: Conjunctiva Clear ENT: Positive: Normal ENT inspection, Hearing grossly normal, Pharynx normal Neck: Positive: Supple, Nontender, No Lymphadenopathy Respiratory Exam: Normal Respiratory: Positive: Chest non-tender, Lungs clear, Normal breath sounds Cardiovascular: Positive: RRR, No Murmur, Pulses Normal Abdominal Exam: Normal Abdomen Description: Positive: Nontender, No Organomegaly, Soft. Negative: CVA Tenderness (R), CVA Tenderness (L), Distended Bowel Sounds: Positive: Present Complaint Female Dx - Differential Dx/Diagnosis Provider Diagnosis: UTI (urinary tract infection) Discharge - Sign-Out/Discharge Documenting (check all that apply): Patient Departure All imaging exams completed and their final reports reviewed: No Studies - Discharge Plan Condition: Stable Disposition: HOME Prescriptions: Sulfamethox/Trimethoprim DS* [Bactrim DS 800/160 TAB*] 1 tab PO BID #14 tab Patient Education Materials: Urinary Tract Infection in Women (ED) Referrals: Jaclyn Lizarraga MD [Primary Care Provider] - If Needed - Billing Disposition and Condition Condition: STABLE Disposition: Home
== END 2018-08-12 10:59 | disposition home or self-care (01) ==
LOC: UCCORT 10:20
DX: N39.0 Urinary tract infection, site not specified (principal); F17.210 Nicotine dependence, cigarettes, uncomplicated
CPT/HCPCS: 81003; 87077; 87086; 87186; 99212; G0463

== ENCOUNTER 2018-08-26 12:54 | Emergency (ER) | payer BC ==
[2018-08-26 13:24] VITALS: BP 117/66
--- NOTE | 2018-08-26 13:41 | UC ---
Respiratory Complaint HPI - HPI Summary HPI Summary: cough x 7 days cough is productive with yellow sputum worse at night, cannot sleep + nasal congestion , pnd, no fever, no chills, , no wheezing, no sob - History of Current Complaint Chief Complaint: UCGeneralIllness Stated Complaint: COUGH CONGESTION Time Seen by Provider: 08/26/18 13:28 Hx Obtained From: Patient Hx Last Menstrual Period: awhile ?: No Onset/Duration: Gradual Onset, Lasting Days - 7, Still Present Timing: Constant Severity Initially: Moderate Severity Currently: Moderate Pain Intensity: 4 Character: Cough: Productive Aggravating Factors: Exertion, Deep Breaths Alleviating Factors: Nothing Associated Signs And Symptoms: Positive: URI. Negative: Dyspnea, Fever, Chills , Pleuritic Chest Pain, Wheezing, Hemoptysis, Dizziness, Calf Pain, Calf Swelling, Edema, Nasal Congestion, Hoarseness - Allergies/Home Medications Allergies/Adverse Reactions: Allergies Allergy/AdvReac Type Severity Reaction Status Date / Time No Known Allergies Allergy Verified 08/26/18 13:24 Home Medications: Home Medications Omeprazole 20 mg PO DAILY 08/26/18 [History Confirmed 08/26/18] PMH/Surg Hx/FS Hx/Imm Hx - Additional Past Medical History Additional PMH: Dyslipidemia, GERD, Vitamin D Deficiency, gestational diabetes - Surgical History Surgical History: Yes Surgery Procedure, Year, and Place: Benign Breast Biopsies, 2016 2012 - Family History Known Family History: Positive: None Negative: Diabetes - Social History Alcohol Use: Rare Substance Use Type: None Smoking Status (MU): Heavy Every Day Tobacco Smoker Type: Cigarettes Amount Used/How Often: 3/4 - 1 ppd Length of Time of Smoking/Using Tobacco: Since Age 20 Have You Smoked in the Last Year: Yes - Immunization History Most Recent Influenza Vaccination: no Review of Systems All Other Systems Reviewed And Are Negative: Yes Constitutional: Positive: Negative Skin: Positive: Negative Eyes: Positive: Negative ENT: Positive: Nasal Discharge, Sinus Congestion Respiratory: Positive: Cough Cardiovascular: Positive: Negative Is Patient Immunocompromised?: No Physical Exam Triage Information Reviewed: Yes Appearance: Well-Appearing, No Pain Distress, Well-Nourished Vital Signs: Initial Vital Signs Temp 97.0 F 08/26/18 13:18 Pulse 83 08/26/18 13:18 Resp 18 08/26/18 13:18 BP 117/66 08/26/18 13:18 Pulse Ox 99 08/26/18 13:18 Vital Signs Reviewed: Yes Eyes: Positive: Conjunctiva Clear ENT: Positive: Normal ENT inspection, Hearing grossly normal, Pharynx normal Neck: Positive: Supple, Nontender, No Lymphadenopathy Respiratory: Positive: Chest non-tender, Lungs clear, Normal breath sounds Cardiovascular: Positive: RRR, No Murmur, Pulses Normal Abdomen Description: Positive: Nontender, No Organomegaly, Soft Skin Exam: Normal Respiratory Course/Dx - Differential Dx/Diagnosis Provider Diagnosis: Bronchitis Discharge - Sign-Out/Discharge Documenting (check all that apply): Patient Departure All imaging exams completed and their final reports reviewed: No Studies - Discharge Plan Condition: Stable Disposition: HOME Prescriptions: Codeine Phosphate/Guaifenesin [Cheratussin AC] 10 ml PO Q8H #120 ml MDD 30 ml predniSONE TAB* [Deltasone 20 MG TAB*] 40 mg PO DAILY #10 tab Patient Education Materials: Acute Bronchitis (ED) Referrals: Jaclyn Lizarraga MD [Primary Care Provider] - 7 Days - Billing Disposition and Condition Condition: STABLE Disposition: Home
== END 2018-08-26 13:42 | disposition home or self-care (01) ==
LOC: UCCORT 12:54
DX: J40 Bronchitis, not specified as acute or chronic (principal); K21.9 Gastro-esophageal reflux disease without esophagitis; F17.210 Nicotine dependence, cigarettes, uncomplicated
CPT/HCPCS: 99212; G0463